=== PATIENT | female | born 1995 | race Caucasian/White ===

== ENCOUNTER 2019-05-22 11:44 | Observation (INO) | payer MEDICAID ==
[~2019-05-22] VITALS: Ht 165.1 cm; Wt 60.5 kg
[~2019-05-22 11:44] MED LIST: ALBU8.5H8 INH; BIRTH CONTROL; CLON1TAB PO; ESCI10TA10 PO
--- NOTE | 2019-05-22 12:11 | NUR ---
PT EHRE WITH C/O COUGH AND "THICK MUCUS." PT STATES HX ASTHMA. PT SEEN HERE 4 DAYS AGO FOR SAME THING. PT ARRIVED TODAY ON AMBULANCE. PT AAO X 4, RECENT HEROIN USE, NAD, ROOM AIR, SITTING ON GURNEY AND WATCHING TV, CALL LIGHT WITHIN REACH. PT DEMANDING "SOMETHING NEEDS TO BE DONE, I WAS HERE 4 DAYS AGO AND ALL YOU DID WAS PUT ME ON STEROIDS AND IT WASN'T DOING ANYTHING. I NEED SOMETHING NOW TO GET THIS JUNK OUT OF MY THROAT." PA AT BEDSIDE FOR EXAM.
[2019-05-22] MEDS ORDERED: CLONIDINE (12:14)
--- NOTE | 2019-05-22 12:21 | NUR ---
PT TAKEN TO XRAY.
--- NOTE | 2019-05-22 12:27 | NUR ---
PT NOTIFIED THIS RN THAT SHE TOOK HER HOME DOSE OF [place], PA NOTIFIED AND THIS RN NOT TO ADMINISTER PO ATIVAN. PT BACK FROM XRAY.
[2019-05-22] MEDS ORDERED: ALBUTEROL/IPRATROPIUM 2.5MG/0.5MG, 3 ML NPPB SCH ×2 (12:30→14:00)
[2019-05-22] MEDS ORDERED: LORazepam 1MG TABLET PO ONE (12:30)
[2019-05-22] MEDS ORDERED: ALBUTEROL/IPRATROPIUM 2.5MG/0.5MG, 3 ML ONE (12:54)
--- NOTE | 2019-05-22 12:58 | NUR ---
THIS RN CALLED TO ROOM, PT STATES "THIS IS BULLSHIT, I NEED ANTIBIOTICS AND I NEED YOU TO GIVE THEM TO ME HERE AND NOW BECAUSE I CAN BARELY WALK. YOU GUYS BETTER DO SOMETHING FOR ME OR YOU BETTER BELIEVE I AM GOING TO REPORT THIS." PA UPDATED ON PT'S REQUEST FOR ABX AND AN "IMMEDIATE" CURE.
--- NOTE | 2019-05-22 13:08 | NUR ---
MD AT BEDSIDE FOR EXAM, RT AT BEDSIDE.
--- NOTE | 2019-05-22 13:09 | NUR ---
PT MEDICATED PER PA ORDER.
--- NOTE | 2019-05-22 13:28 | NUR ---
ALL RESULTS BACK AT THIS TIME, CHART UP FOR RECHECK.
--- NOTE | 2019-05-22 13:35 | NUR ---
AT BEDSIDE FOR REASSESSMENT.
--- NOTE | 2019-05-22 13:58 | NUR ---
PIV ESTABLISHED BY THIS RN AND LABS DRAWN. PT PLACED ON 2L NC. WALKING O2 SAT 85% WITH SIGNIFICANT SOB PER PT. PLAN FOR ADMISSION.
[2019-05-22] MEDS ORDERED: SODIUM CHLORIDE FLUSH 10ML SYR IVF ONE (14:00)
[2019-05-22] MEDS ORDERED: AZITHROMYCIN 500 MG in SODIUM CHLORIDE 0.9% 250 ML IV ONE (14:00)
[2019-05-22 14:03] LABS: BASOPHILS # (AUTO) 0.01 x10^3/uL (0-0.1); BASOPHILS % (AUTO) 0 % (0-1); EOSINOPHILS % (AUTO) 0 % (1-7); LYMPHOCYTES # (AUTO) 1.01 x10^3/uL (1-3.4); LYMPHOCYTES % (AUTO) 10 % (22-44); MD NO; MEAN CORPUSCULAR HEMOGLOBIN 29.9 pg (27.0-34.8); MEAN CORPUSCULAR HGB CONC 33.2 g/dL (32.4-35.8); MEAN PLATELET VOLUME 7.6 fL (7.4-10.4); MONOCYTES # (AUTO) 0.18 x10^3/uL (0.2-0.8); MONOCYTES % (AUTO) 2 % (2-9); NEUTROPHILS # (AUTO) 9.38 x10^3/uL (1.8-6.8); NEUTROPHILS % (AUTO) 89 % (42-75); PLATELET COUNT 278 x10^3/uL (130-400); RED BLOOD COUNT 4.98 x10^6/uL (3.82-5.3); RED CELL DISTRIBUTION WIDTH 12.4 % (9.6-15.2)
[2019-05-22 14:15] LABS: ALBUMIN 3.7 g/dL (3.4-5.0); ANION GAP 8 mmol/L (5-15); CALCIUM 9.6 mg/dL (8.5-10.1); CHLORIDE 108 mmol/L (98-107); CREATININE 1.03 mg/dL (0.55-1.02)
[2019-05-22 14:32] LABS: RAPID INFLUENZA A Negative (Negative); RAPID INFLUENZA B Negative (Negative)
--- NOTE | 2019-05-22 14:38 | NUR ---
TASK RN: FIRST CONTACT WITH PT. Provided medication per EMAR. Pt stated pain at PIV site. Stopped PIV medication and d/c PIV with tip intact. New PIV being established at this time.
[2019-05-22] MEDS ORDERED: ACETAMINOPHEN 325 MG TABLET PO PRN (15:00)
[2019-05-22] MEDS ORDERED: ONDANSETRON 2MG/ML, 2ML IVPush PRN (15:00)
[2019-05-22] MEDS ORDERED: TRAZODONE 50MG TABLET PO PRN (15:00)
[2019-05-22] MEDS ORDERED: PROMETHAZINE 25 MG/ML, 1ML IM PRN (15:00)
--- NOTE | 2019-05-22 15:04 | NUR ---
TECH AT BEDSIDE, PIV ESTABLISHED UNDER US.
[2019-05-22] MEDS: SODIUM CHLORIDE 0.9% 1,000 ML IV SCH (16:09)
[2019-05-22] MEDS: LORazepam 1MG TABLET PO PRN ×2 (16:09→20:01)
[2019-05-22] MEDS: TIZANIDINE 4MG TABLET PO SCH (16:09)
[2019-05-22] MEDS: GUAIFENESIN ER 600 MG TABLET PO SCH ×2 (16:09→20:01)
[2019-05-22] MEDS ORDERED: ALBUTEROL/IPRATROPIUM 2.5MG/0.5MG, 3 ML NPPB PRN (17:00)
[2019-05-22] MEDS: ALBUTEROL SULFATE 2.5 MG/3 ML NPPB SCH ×2 (18:45→23:00)
[2019-05-22 18:57] VITALS: BP 93/53
[2019-05-22] MEDS: HEPARIN 5,000 UNITS/ML, 1ML SQ SCH (19:00)
[2019-05-22] MEDS: methylPREDNISolone SOD SUCC 40 MG/ML IV SCH (19:44)
[2019-05-23] MEDS: TIZANIDINE 4MG TABLET PO SCH ×2 (00:54→09:20)
[2019-05-23 00:55] VITALS: BP 105/62
[2019-05-23] MEDS: SODIUM CHLORIDE 0.9% 1,000 ML IV SCH ×2 (00:56→09:24)
[2019-05-23] MEDS: ALBUTEROL SULFATE 2.5 MG/3 ML NPPB SCH ×3 (01:47→10:43)
[2019-05-23] MEDS: HEPARIN 5,000 UNITS/ML, 1ML SQ SCH ×2 (03:00→11:00)
[2019-05-23] MEDS: methylPREDNISolone SOD SUCC 40 MG/ML IV SCH (04:04)
[2019-05-23] MEDS: LORazepam 1MG TABLET PO PRN ×3 (04:18→13:37)
[2019-05-23] MEDS ORDERED: ESCITALOPRAM 10MG TABLET PO SCH (09:00)
[2019-05-23 09:17] VITALS: BP 108/63
[2019-05-23] MEDS: GUAIFENESIN ER 600 MG TABLET PO SCH (09:20)
[2019-05-23 09:27] LABS: MEAN CORPUSCULAR HEMOGLOBIN 29.5 pg (27.0-34.8); MEAN CORPUSCULAR VOLUME 89.3 fL (80-100); MEAN PLATELET VOLUME 7.5 fL (7.4-10.4); PLATELET COUNT 298 x10^3/uL (130-400); RED BLOOD COUNT 4.26 x10^6/uL (3.82-5.3); RED CELL DISTRIBUTION WIDTH 12.5 % (9.6-15.2)
[2019-05-23 09:30] LABS: ANION GAP 9 mmol/L (5-15); CALCIUM 8.4 mg/dL (8.5-10.1); CHLORIDE 109 mmol/L (98-107); CREATININE 0.86 mg/dL (0.55-1.02)
[2019-05-23 09:42] LABS: BASOPHILS # (AUTO) 0.01 x10^3/uL (0-0.1); BASOPHILS % (AUTO) 0 % (0-1); EOSINOPHILS % (AUTO) 0 % (1-7); LYMPHOCYTES # (AUTO) 0.86 x10^3/uL (1-3.4); LYMPHOCYTES % (AUTO) 8 % (22-44); MD SCAN; MONOCYTES % (AUTO) 2 % (2-9); NEUTROPHILS # (AUTO) 9.62 x10^3/uL (1.8-6.8); NEUTROPHILS % (AUTO) 90 % (42-75)
[2019-05-23] MEDS ORDERED: ALBUTEROL SULFATE 2.5 MG/3 ML NPPB PRN (11:30)
[2019-05-23] MEDS ORDERED: methylPREDNISolone SOD SUCC 40 MG/ML IV SCH (15:00)
[2019-05-23] MEDS ORDERED: DOXYCYCLINE 100MG TABLET PO SCH (15:00)
[2019-05-23] MEDS ORDERED: ALBUTEROL SULFATE 2.5 MG/3 ML NPPB SCH (20:00)
== END 2019-05-23 16:25 | disposition left against medical advice (07) ==
LOC: ED 13:49 → EDIP 13:50 → INTOOBSV 13:50 → ED 14:24 → 3N 15:20
PROVIDERS: ADMIT Internal Medicine; ATTEND Internal Medicine
DX: J96.01 Acute respiratory failure with hypoxia (principal); J45.901 Unspecified asthma with (acute) exacerbation; N17.0 Acute kidney failure with tubular necrosis; E87.2 Acidosis; F13.20 Sedative, hypnotic or anxiolytic dependence, uncomplicated; D72.829 Elevated white blood cell count, unspecified; F11.10 Opioid abuse, uncomplicated; F90.9 Attention-deficit hyperactivity disorder, unspecified type; F41.9 Anxiety disorder, unspecified; F32.9 Major depressive disorder, single episode, unspecified; Z88.1 Allergy status to other antibiotic agents
CPT/HCPCS: 36415; 71046; 80048; 82040; 83605; 85025; 87400; 94640; 96365; 96372; 96375; 99291; G0378; J0456; J2920; J7030; J7050; J7512; J7613; J7620

== ENCOUNTER 2019-08-19 10:48 | Inpatient (IN) | payer MEDICAID ==
[~2019-08-19] VITALS: Ht 165.1 cm; Wt 60.1 kg
[~2019-08-19 10:48] MED LIST changes: +CLONIDINE
[2019-08-19] MEDS ORDERED: methylPREDNISolone SOD SUCC 125 MG/2 ML ONE (11:18)
[2019-08-19] MEDS ORDERED: ALBUTEROL 0.5%, 20ML ONE (11:20)
--- NOTE | 2019-08-19 11:28 | NUR ---
pt to ed from home. c/o asthma exacerbation xdays. exp/insp wheezes exp>insp on auscultation, audible exp wheezing. 84% RA. nebs at home w/ no relief. sts uses IV heroin, took heroin prior to coming to ED. pt anxious, speaking quickly. bp stable, SR 90-100s. dr. george in room. piv est, labs drawn. meds per sep. cont neb in prog. cxr pending. call toro in reach. as
[2019-08-19] MEDS ORDERED: SODIUM CHLORIDE FLUSH 10ML SYR IVF ONE (11:30)
[2019-08-19] MEDS ORDERED: methylPREDNISolone SOD SUCC 125 MG/2 ML IVPush ONE (11:30)
[2019-08-19] MEDS ORDERED: SODIUM CHLORIDE 0.9% 1,000ML IVBOLUS ONE (11:30)
[2019-08-19 11:37] LABS: BASOPHILS # (AUTO) 0.04 x10^3/uL (0-0.1); BASOPHILS % (AUTO) 0 % (0-1); EOSINOPHILS # (AUTO) 1.71 x10^3/uL (0-0.4); EOSINOPHILS % (AUTO) 14 % (1-7); LYMPHOCYTES # (AUTO) 1.05 x10^3/uL (1-3.4); LYMPHOCYTES % (AUTO) 9 % (22-44); MD NO; MEAN CORPUSCULAR HEMOGLOBIN 27.8 pg (27.0-34.8); MEAN CORPUSCULAR HGB CONC 32.1 g/dL (32.4-35.8); MEAN CORPUSCULAR VOLUME 86.4 fL (80-100); MONOCYTES # (AUTO) 0.45 x10^3/uL (0.2-0.8); MONOCYTES % (AUTO) 4 % (2-9); NEUTROPHILS # (AUTO) 8.98 x10^3/uL (1.8-6.8); NEUTROPHILS % (AUTO) 74 % (42-75); PLATELET COUNT 454 x10^3/uL (130-400); RED BLOOD COUNT 4.55 x10^6/uL (3.82-5.3)
[2019-08-19 11:47] LABS: ALBUMIN 2.8 g/dL (3.4-5.0); ANION GAP 8 mmol/L (5-15); CALCIUM 8.5 mg/dL (8.5-10.1); CHLORIDE 102 mmol/L (98-107); CREATININE 0.92 mg/dL (0.55-1.02)
[2019-08-19] MEDS ORDERED: VANCOMYCIN PMX 1GM/200ML 200 ML IVPB ONE (12:00)
[2019-08-19] MEDS ORDERED: ALBUTEROL SULFATE 2.5 MG/3 ML NPPB PRN ×2 (12:00→15:30)
[2019-08-19] MEDS ORDERED: CEFTRIAXONE PMX 1GM/50ML 50 ML IVPB ONE (12:00)
[2019-08-19] MEDS ORDERED: VANCOMYCIN PER PHARMACY MC ONE (12:00)
[2019-08-19] MEDS ORDERED: CEFTRIAXONE PMX 1GM/50ML 50 ML ONE (12:06)
[2019-08-19] MEDS ORDERED: SODIUM CHLORIDE 0.9%, 500ML IVBOLUS ONE (12:30)
[2019-08-19] MEDS ORDERED: CLON-275 PO (12:35)
--- NOTE | 2019-08-19 12:35 | NUR ---
to bathroom. gait steady. tachypneic after. plan for admit. ua sent. abx infusing. as
[2019-08-19] MEDS ORDERED: MAGNESIUM SULFATE PMX 2GM/50ML 50 ML ONE (12:47)
[2019-08-19] MEDS ORDERED: MAGNESIUM SULFATE PMX 2GM/50ML 50 ML IV ONE ×2 (13:00→14:30)
[2019-08-19 13:09] LABS: AMPHETAMINE SCREEN, URINE Negative (Negative); BARBITURATE SCREEN, URINE Negative (Negative); BENZODIAZEPINE SCREEN, URINE Negative (Negative); CANNABINOID SCREEN, URINE Negative (Negative); COCAINE SCREEN, URINE Negative (Negative); METHADONE SCREEN, URINE Negative (Negative); OPIATE SCREEN, URINE Positive (Negative)
--- NOTE | 2019-08-19 13:17 | NUR ---
pt to ct. rt turned off nebulizer and pt went to ct w/o O2. call placed to ct, told ct to place pt on [address] pt satting 85% per director service. told director service to place pt on nrb at 15 lpm and then titrate down to keep pt 95%. as
[2019-08-19] MEDS ORDERED: OMNIPAQUE 350 MG/ML, 75ML BOTTLE ONE (13:29)
--- NOTE | 2019-08-19 13:40 | NUR ---
pt back from ct. unable to hang vanco/mag d/t shortage of iv pumps. sterile processing called mult times. pt taking off bp cuff/o2 mult times after being reminded to keep it on. asking for food. ordered lunch. vss. as
--- NOTE | 2019-08-19 13:52 | NUR ---
report to stefania estrada. as
--- NOTE | 2019-08-19 13:54 | NUR ---
stefania estrada notified that pt needs mag/vanco. meds on bed w/ pt. as
[2019-08-19] MEDS ORDERED: DOCUSATE 100 MG CAPSULE PO PRN (14:30)
[2019-08-19] MEDS ORDERED: POLYETHYLENE GLYCOL 17 GM PACKET PO PRN (14:30)
[2019-08-19] MEDS ORDERED: BISACODYL 10 MG SUPP PR PRN (14:30)
[2019-08-19] MEDS ORDERED: ONDANSETRON 2MG/ML, 2ML IVPush PRN (14:30)
[2019-08-19] MEDS ORDERED: ACETAMINOPHEN 325 MG TABLET PO PRN (14:30)
[2019-08-19] MEDS ORDERED: VANCOMYCIN PER PHARMACY MC PRN (14:30)
[2019-08-19 15:06] VITALS: BP 122/64
[2019-08-19] MEDS ORDERED: PHARMACOKINETIC MONITORING MC PRN (15:30)
[2019-08-19] MEDS ORDERED: PHARMACOKINETIC CONSULTATION MC ONE (15:30)
[2019-08-19 15:42] LABS: RAPID INFLUENZA A Negative (Negative); RAPID INFLUENZA B Negative (Negative)
[2019-08-19] MEDS: SODIUM CHLORIDE 0.9% 1,000 ML IV SCH (16:05)
[2019-08-19] MEDS: VANCOMYCIN 1,200 MG in SODIUM CHLORIDE 0.9% 250 ML IV SCH (16:05)
[2019-08-19] MEDS: LORazepam 2 MG/ML, 1ML IVPush PRN ×2 (16:20→19:47)
[2019-08-19] MEDS: ENOXAPARIN 40 MG/0.4 ML SQ SCH (17:49)
[2019-08-19] MEDS: LEVONORGESTREL PO SCH (17:51)
[2019-08-19] MEDS: ETHINYL ESTRADIOL PO SCH (17:51)
[2019-08-19] MEDS ORDERED: ETHINYL ESTRADIOL PO SCH (18:00)
[2019-08-19] MEDS ORDERED: LEVONORGESTREL PO SCH (18:00)
[2019-08-19] MEDS: methylPREDNISolone SOD SUCC 40 MG/ML IV SCH (19:47)
[2019-08-19 20:23] VITALS: BP 119/74
[2019-08-20 01:14] VITALS: BP 121/68
[2019-08-20] MEDS: LORazepam 2 MG/ML, 1ML IVPush PRN ×4 (01:16→13:10)
[2019-08-20] MEDS: SODIUM CHLORIDE 0.9% 1,000 ML IV SCH ×2 (01:18→10:31)
[2019-08-20] MEDS: VANCOMYCIN 1,200 MG in SODIUM CHLORIDE 0.9% 250 ML IV SCH ×2 (04:25→15:43)
[2019-08-20 06:45] LABS: BASOPHILS # (AUTO) 0.04 x10^3/uL (0-0.1); BASOPHILS % (AUTO) 0 % (0-1); EOSINOPHILS % (AUTO) 0 % (1-7); LYMPHOCYTES # (AUTO) 0.94 x10^3/uL (1-3.4); LYMPHOCYTES % (AUTO) 7 % (22-44); MD NO; MEAN CORPUSCULAR HEMOGLOBIN 28.1 pg (27.0-34.8); MEAN CORPUSCULAR HGB CONC 32.5 g/dL (32.4-35.8); MEAN CORPUSCULAR VOLUME 86.4 fL (80-100); MEAN PLATELET VOLUME 7.4 fL (7.4-10.4); MONOCYTES # (AUTO) 0.36 x10^3/uL (0.2-0.8); MONOCYTES % (AUTO) 3 % (2-9); NEUTROPHILS # (AUTO) 12.52 x10^3/uL (1.8-6.8); NEUTROPHILS % (AUTO) 90 % (42-75); PLATELET COUNT 418 x10^3/uL (130-400); RED BLOOD COUNT 4.26 x10^6/uL (3.82-5.3); RED CELL DISTRIBUTION WIDTH 14.2 % (9.6-15.2)
[2019-08-20 06:59] LABS: ALBUMIN 2.6 g/dL (3.4-5.0); ANION GAP 6 mmol/L (5-15); CALCIUM 8.4 mg/dL (8.5-10.1); CHLORIDE 109 mmol/L (98-107)
[2019-08-20 07:12] LABS: ALANINE AMINOTRANSFERASE 21 U/L (12-78); ALKALINE PHOSPHATASE 71 U/L (45-117); BILIRUBIN,TOTAL 0.4 mg/dL (0.2-1.0); CREATININE 0.76 mg/dL (0.55-1.02); TOTAL PROTEIN 7.4 g/dL (6.4-8.2)
[2019-08-20 07:54] VITALS: BP 106/58
[2019-08-20] MEDS: CETIRIZINE 10 MG TABLET PO SCH (10:30)
[2019-08-20] MEDS: methylPREDNISolone SOD SUCC 40 MG/ML IV SCH ×2 (10:30→21:02)
[2019-08-20] MEDS: ESCITALOPRAM 10MG TABLET PO SCH (10:30)
[2019-08-20] MEDS: CEFTRIAXONE PMX 1GM/50ML 50 ML IV SCH (13:11)
[2019-08-20 13:27] LABS: MICROSCOPIC NOT IND
[2019-08-20 13:34] LABS: CULTURE INDICATED? NO
[2019-08-20 14:24] VITALS: BP 115/70
[2019-08-20] MEDS ORDERED: GUAIFENESIN ER 600 MG TABLET ONE (15:38)
[2019-08-20] MEDS: LORazepam 1MG TABLET PO PRN ×3 (15:42→21:03)
[2019-08-20] MEDS ORDERED: LORazepam 2 MG/ML, 1ML IVPush PRN (16:30)
[2019-08-20] MEDS: ETHINYL ESTRADIOL PO SCH (18:00)
[2019-08-20] MEDS: LEVONORGESTREL PO SCH (18:00)
[2019-08-20] MEDS: ENOXAPARIN 40 MG/0.4 ML SQ SCH (18:44)
[2019-08-20 20:53] VITALS: BP 137/81
[2019-08-20] MEDS: GUAIFENESIN ER 600 MG TABLET PO SCH (21:03)
[2019-08-21 01:48] VITALS: BP 118/68
[2019-08-21] MEDS: LORazepam 1MG TABLET PO PRN ×4 (01:56→10:48)
[2019-08-21] MEDS: VANCOMYCIN 1,200 MG in SODIUM CHLORIDE 0.9% 250 ML IV SCH (03:44)
[2019-08-21 04:21] LABS: BASOPHILS # (AUTO) 0.02 x10^3/uL (0-0.1); BASOPHILS % (AUTO) 0 % (0-1); EOSINOPHILS % (AUTO) 0 % (1-7); LYMPHOCYTES # (AUTO) 1.15 x10^3/uL (1-3.4); LYMPHOCYTES % (AUTO) 8 % (22-44); MD NO; MEAN CORPUSCULAR HEMOGLOBIN 28.2 pg (27.0-34.8); MEAN CORPUSCULAR HGB CONC 32.6 g/dL (32.4-35.8); MEAN CORPUSCULAR VOLUME 86.3 fL (80-100); MEAN PLATELET VOLUME 7.6 fL (7.4-10.4); MONOCYTES # (AUTO) 0.26 x10^3/uL (0.2-0.8); MONOCYTES % (AUTO) 2 % (2-9); NEUTROPHILS # (AUTO) 13.24 x10^3/uL (1.8-6.8); NEUTROPHILS % (AUTO) 90 % (42-75); PLATELET COUNT 406 x10^3/uL (130-400); RED BLOOD COUNT 4.01 x10^6/uL (3.82-5.3); RED CELL DISTRIBUTION WIDTH 14.5 % (9.6-15.2)
[2019-08-21 04:30] LABS: ANION GAP 6 mmol/L (5-15); CALCIUM 8.6 mg/dL (8.5-10.1); CHLORIDE 109 mmol/L (98-107); CREATININE 0.77 mg/dL (0.55-1.02)
[2019-08-21 04:32] LABS: VANCOMYCIN,TROUGH 7.1 mcg/mL (5.0-10.0)
[2019-08-21] MEDS: CETIRIZINE 10 MG TABLET PO SCH (08:14)
[2019-08-21] MEDS: GUAIFENESIN ER 600 MG TABLET PO SCH (08:14)
[2019-08-21] MEDS: ESCITALOPRAM 10MG TABLET PO SCH (08:15)
[2019-08-21] MEDS: methylPREDNISolone SOD SUCC 40 MG/ML IV SCH ×2 (08:15→10:42)
[2019-08-21] MEDS ORDERED: DOXYCYCLINE 100 MG in DEXTROSE 5% 250 ML IV SCH (10:00)
[2019-08-21] MEDS ORDERED: CITA10TA8 PO (10:13)
[2019-08-21] MEDS ORDERED: VANCOMYCIN 1,200 MG in SODIUM CHLORIDE 0.9% 250 ML IV SCH (12:00)
[2019-08-21 12:30] VITALS: BP 130/86
[2019-08-21] MEDS ORDERED: METHADONE 10 MG TABLET PO SCH (13:30)
[2019-08-21] MEDS: CEFTRIAXONE PMX 1GM/50ML 50 ML IV SCH (13:47)
[2019-08-21] MEDS ORDERED: PRED20TA PO (15:47)
[2019-08-21] MEDS ORDERED: ESCI10TA10 PO (15:47)
[2019-08-21] MEDS ORDERED: ALBU8.5H8 INH (15:47)
[2019-08-21] MEDS ORDERED: DOXY100T23 PO (15:47)
== END 2019-08-21 16:38 | disposition left against medical advice (07) | DRG 196 ==
LOC: ED 12:11 → EDIP 12:12 → ED 12:31 → 4EST 14:25
PROVIDERS: ADMIT Hospitalist; ATTEND Hospitalist
DX: J67.9 Hypersensitivity pneumonitis due to unspecified organic dust (principal); J96.01 Acute respiratory failure with hypoxia; E87.2 Acidosis; R65.10 Systemic inflammatory response syndrome (SIRS) of non-infectious origin without acute organ dysfunction; J82 Pulmonary eosinophilia, not elsewhere classified; E83.42 Hypomagnesemia; F11.90 Opioid use, unspecified, uncomplicated; F32.9 Major depressive disorder, single episode, unspecified; F43.10 Post-traumatic stress disorder, unspecified; F90.9 Attention-deficit hyperactivity disorder, unspecified type; F95.2 Tourette's disorder; T38.0X5A Adverse effect of glucocorticoids and synthetic analogues, initial encounter; Y92.89 Other specified places as the place of occurrence of the external cause
CPT/HCPCS: 36415; 84145; 87400; 96361; 96365; 96375; 99291; J7611; 71045; 71260; 80048; 80053; 80202; 80307; 81003; 82040; 83036; 83605; 83735; 84100; 84439; 84443; 84703; 85025; 87040; 87205; 87491; 87591; 93005; 94644; G0378; J0696; J1650; J3370; J7060; Q9967; J2060; J2920; J2930; J3475; J7030; J7040; J7050

== ENCOUNTER 2019-09-12 21:26 | Emergency (ER) | payer MEDICAID ==
[~2019-09-12] VITALS: Ht 165.1 cm; Wt 57.2 kg
[~2019-09-12 21:26] MED LIST changes: +CITA10TA8 PO; +CLON-275 PO; +DOXY100T23 PO; +PRED20TA PO
[2019-09-12 21:37] VITALS: BP 144/114
--- NOTE | 2019-09-12 21:50 | NUR ---
TRAINING AND DEVELOPMENT SPECIALIST: FROM LOBBY TO ROOM AT THIS TIME
[2019-09-12] MEDS ORDERED: ALBUTEROL/IPRATROPIUM 2.5MG/0.5MG, 3 ML NPPB SCH (22:00)
[2019-09-12] MEDS ORDERED: SODIUM CHLORIDE FLUSH 10ML SYR IVF ONE (22:30)
[2019-09-12] MEDS ORDERED: CEFTRIAXONE PMX 1GM/50ML 50 ML IVPB ONE (22:30)
[2019-09-12] MEDS ORDERED: AZITHROMYCIN 500 MG in SODIUM CHLORIDE 0.9% 250 ML IVPB ONE (22:30)
[2019-09-12 22:38] LABS: MEAN CORPUSCULAR HEMOGLOBIN 27.7 pg (27.0-34.8); MEAN CORPUSCULAR HGB CONC 32.6 g/dL (32.4-35.8); MEAN PLATELET VOLUME 6.9 fL (7.4-10.4); PLATELET COUNT 397 x10^3/uL (130-400); RED BLOOD COUNT 4.34 x10^6/uL (3.82-5.3); RED CELL DISTRIBUTION WIDTH 14.4 % (9.6-15.2)
[2019-09-12 22:49] LABS: ALANINE AMINOTRANSFERASE 13 U/L (12-78); ALBUMIN 2.7 g/dL (3.4-5.0); ANION GAP 8 mmol/L (5-15); CALCIUM 8.5 mg/dL (8.5-10.1); CHLORIDE 106 mmol/L (98-107); CREATININE 0.85 mg/dL (0.55-1.02)
[2019-09-12 22:54] LABS: ALKALINE PHOSPHATASE 77 U/L (45-117); BILIRUBIN,TOTAL 0.3 mg/dL (0.2-1.0); TOTAL PROTEIN 7.7 g/dL (6.4-8.2)
--- NOTE | 2019-09-12 22:54 | NUR ---
per provided pt to not have iv she does not want one and will follow up with pcp for abx.
--- NOTE | 2019-09-12 22:55 | NUR ---
late entry. Pt is here for mulit focal pneumonia that is not resolving due to poor compliance and iv drug use. pt reports she has relapsed and cannot stay in the hospital due to anxiety. Pt reports increase in sob.
[2019-09-12 23:02] LABS: MD YES
[2019-09-12 23:13] LABS: EOS#(MANUAL) 2.04 x10^3/uL (0.0-0.4); EOS% (MANUAL) 21 % (1-7); LYMPH#(MANUAL) 2.33 x10^3/uL (1-3.4); LYMPHS% (MANUAL) 24 % (22-44); MONOS#(MANUAL) 0.29 x10^3/uL (0.3-2.7); MONOS% (MANUAL) 3 % (2-9); SEG#(MANUAL) 5.04 x10^3/uL (1.8-6.8); SEGS% (MANUAL) 52 % (42-75)
[2019-09-12 23:14] LABS: <PLATELET ESTIMATE> ADEQUATE; <PLT MORPHOLOGY> NORMAL PLT MORPH; <RBC MORPHOLOGY> NORMAL
--- NOTE | 2019-09-12 23:41 | NUR ---
Patient/Caregiver given discharge instructions and they have confirmed that they understand the instructions. Patient ambulatory with steady gait.
== END 2019-09-12 23:47 | disposition home or self-care (01) ==
LOC: ED 23:30
DX: J45.41 Moderate persistent asthma with (acute) exacerbation (principal); J18.9 Pneumonia, unspecified organism; F11.10 Opioid abuse, uncomplicated; F17.210 Nicotine dependence, cigarettes, uncomplicated
CPT/HCPCS: 36415; 71046; 80053; 84703; 85025; 87040; 94640; 99284; 99406; J7512; J7620

== ENCOUNTER 2020-01-22 17:27 | Emergency (ER) | payer MEDICAID ==
[~2020-01-22] VITALS: Ht 165.1 cm; Wt 52.9 kg
--- NOTE | 2020-01-22 17:35 | NUR ---
CALLED FOR PT. PT NOT IN LOBBY.
--- NOTE | 2020-01-22 18:00 | NUR ---
TASK RN: PT TO ROOM VIA WC FROM TRIAGE. PT SABLE TO SPEAK W/O DIFFICULTY AND DOES NOT APPEAR SOB, HOWEVER RA SAT 72%. 02 4L NC PLACED WITH EFFECT, SP02 = 92%. ALL MONITORS PLACED. CALL LIGHT W/I REACH
[2020-01-22] MEDS ORDERED: ALBUTEROL/IPRATROPIUM 2.5MG/0.5MG, 3 ML NPPB ONE (18:30)
--- NOTE | 2020-01-22 19:00 | NUR ---
PT STATES SHE'S HAD RECURRENT BOUTS OF PNEUMONIA. STATES "IT SEEMS LIKE I GET SICK AFTER I RELAPSE AND I DO A BAD STICK OR SOMETHING". REPORTS SHE VAPES BUT DOESN'T SMOKE OR INHALE ANY DRUGS.
[2020-01-22] MEDS ORDERED: SODIUM CHLORIDE FLUSH 10ML SYR IVF ONE (19:30)
--- NOTE | 2020-01-22 19:30 | NUR ---
BREATHING TX DONE. LABS & BLOOD CX DRAWN AT BS. RV'WD POC WITH PT.
[2020-01-22 19:34] LABS: MEAN CORPUSCULAR HEMOGLOBIN 27.3 pg (27.0-34.8); MEAN CORPUSCULAR HGB CONC 32.6 g/dL (32.4-35.8); MEAN CORPUSCULAR VOLUME 83.9 fL (80-100); MEAN PLATELET VOLUME 6.5 fL (7.4-10.4); PLATELET COUNT 470 x10^3/uL (130-400); RED BLOOD COUNT 4.49 x10^6/uL (3.82-5.3); RED CELL DISTRIBUTION WIDTH 14.5 % (9.6-15.2)
[2020-01-22 19:46] LABS: ALBUMIN 2.7 g/dL (3.4-5.0); ANION GAP 7 mmol/L (5-15); CALCIUM 8.5 mg/dL (8.5-10.1); CHLORIDE 104 mmol/L (98-107); CREATININE 0.91 mg/dL (0.55-1.02)
[2020-01-22] MEDS ORDERED: CEFTRIAXONE PMX 1GM/50ML 50 ML ONE (19:46)
[2020-01-22] MEDS ORDERED: CEFTRIAXONE PMX 1GM/50ML 50 ML IVPB ONE (20:00)
--- NOTE | 2020-01-22 20:00 | NUR ---
IV ABX INFUSING. RV'WD POC WITH PT AGAIN.
[2020-01-22 20:03] LABS: BASOPHILS # (AUTO) 0.05 x10^3/uL (0-0.1); BASOPHILS % (AUTO) 0 % (0-1); EOSINOPHILS # (AUTO) 2.99 x10^3/uL (0-0.4); EOSINOPHILS % (AUTO) 22 % (1-7); LYMPHOCYTES # (AUTO) 2.14 x10^3/uL (1-3.4); LYMPHOCYTES % (AUTO) 16 % (22-44); MD SCAN; MONOCYTES # (AUTO) 0.72 x10^3/uL (0.2-0.8); MONOCYTES % (AUTO) 5 % (2-9); NEUTROPHILS # (AUTO) 7.84 x10^3/uL (1.8-6.8); NEUTROPHILS % (AUTO) 57 % (42-75)
[2020-01-22 20:15] VITALS: BP 90/44
--- NOTE | 2020-01-22 20:43 | NUR ---
RA SPO2 80%. PT AMBULATED TO BR WITHOUT DIFFICULTY.
--- NOTE | 2020-01-22 20:50 | NUR ---
PT HAD SKIN IRRITATION TO L EYE, STATED, "IT WAS AFTER I TOUCHED MY EYE WITH HAND HEALTHCARE APPLICATIONS ANALYST, THEN IT GOT ALL RED AND PUFFY." ERP WAS IN ROOM TO SPEAK WITH PT AND ASSESS HER. ERP ENCOURAGED PT TO STAY IN HOSPITAL D/T LOW O2 SAT BUT PT BECAME VERY ANXIOUS AND COMPLAINED, "YOU'RE NOT EVEN PAYING ATTENTION TO MY EYE! I HATE GERMS AND I DON'T EVEN WANT TO BE HERE! I'M HAVING A PANIC ATTACK!" PT THEN REFUSED TO BE ADMITTED AND STATED SHE WANTED TO LEAVE [place].
--- NOTE | 2020-01-22 21:30 | NUR ---
BILLY RN: PT DISCHARGED BY BILLY RN. PT VERBALIZED UNDERSTANDING OF DC INSTRUCTIONS AND RX AND NEED FOR F/U WITH PCP AND TO RETURN IMMEDIATELY TO ER FOR WORSENING SX. PT EDUCATED RISKS OF LEAVING AMA UP TO AND INCLUDING HYPOXIA AND . PT VERBALIZED UNDERSTANDING, STATING "I KNOW IT SOUNDS DUMB BUT I'M A HUGE GERMOPHOBE. I TOUCHED THE GURNEY THEN I TOUCHED MY EYE. AND IT BLEW UP. PLUS SHE JUST HAD SURGERY [POINTING TO DOG]". PT AO X 4. AMA PAPERWORK SIGNED AND PT WALKED TO DC DESK.
== END 2020-01-22 21:34 ==
LOC: ED 21:28
DX: J18.8 Other pneumonia, unspecified organism (principal); R09.02 Hypoxemia; J45.909 Unspecified asthma, uncomplicated; R94.31 Abnormal electrocardiogram [ECG] [EKG]; F17.200 Nicotine dependence, unspecified, uncomplicated; F90.9 Attention-deficit hyperactivity disorder, unspecified type
CPT/HCPCS: 36415; 71045; 80048; 82040; 83605; 84145; 85025; 87040; 93005; 94640; 96365; 99285; J0696; J7512

== ENCOUNTER 2020-02-16 22:15 | Inpatient (IN) | payer MEDICAID ==
[~2020-02-16] VITALS: Ht 165.1 cm; Wt 63.7 kg
--- NOTE | 2020-02-16 22:18 | NUR ---
THIS IS A 24Y F THAT WAS FOUND IN HER CAR OUT FRONT OF THE ER. PT STS SHE WAS TRYING TO COME IN TO GET TREATED FOR HER PNA AND ASTHMA. PT WAS SEEN IN DECEMBER AND DIAGNOSED BUT DUE TO PERSONAL CIRCUMSTANCES PT WAS UNABLE TO BE ADMITTED TO HOSPITAL AT THAT TIME. PT RA SAT 74% TACHYCARDIC, TACHYPENIC. PT CONNECTED TO ALL MONITORING, ERP AT BEDSIDE FOR ASSESSMENT.
[2020-02-16] MEDS ORDERED: SODIUM CHLORIDE 0.9% 1,000ML IVBOLUS ONE (22:30)
[2020-02-16] MEDS ORDERED: SODIUM CHLORIDE FLUSH 10ML SYR IVF ONE (22:30)
[2020-02-16] MEDS ORDERED: ALBUTEROL/IPRATROPIUM 2.5MG/0.5MG, 3 ML NPPB SCH (22:30)
[2020-02-16] MEDS ORDERED: methylPREDNISolone SOD SUCC 125 MG/2 ML IV ONE (22:30)
[2020-02-16] MEDS ORDERED: methylPREDNISolone SOD SUCC 125 MG/2 ML ONE (22:47)
[2020-02-16] MEDS ORDERED: ALBUTEROL/IPRATROPIUM 2.5MG/0.5MG, 3 ML ONE (22:48)
[2020-02-16] MEDS ORDERED: AZITHROMYCIN 500 MG in SODIUM CHLORIDE 0.9% 250 ML IVPB ONE (23:00)
[2020-02-16] MEDS ORDERED: CEFTRIAXONE PMX 1GM/50ML 50 ML IVPB ONE (23:00)
[2020-02-16] MEDS ORDERED: CEFTRIAXONE PMX 1GM/50ML 50 ML ONE (23:14)
--- NOTE | 2020-02-16 23:23 | NUR ---
BREATHING TX IN PROCESS PT TOLERATING WELL. IVF AND ABX INFUSING W/OUT DIFFICULTY.
[2020-02-16 23:30] LABS: MEAN CORPUSCULAR HEMOGLOBIN 27.1 pg (27.0-34.8); MEAN CORPUSCULAR HGB CONC 32.2 g/dL (32.4-35.8); MEAN PLATELET VOLUME 7.4 fL (7.4-10.4); PLATELET COUNT 375 x10^3/uL (130-400); RED BLOOD COUNT 4.26 x10^6/uL (3.82-5.3)
[2020-02-16] MEDS ORDERED: VANCOMYCIN PER PHARMACY MC PRN (23:30)
[2020-02-16] MEDS ORDERED: VANCOMYCIN PMX 1GM/200ML 200 ML IV ONE (23:30)
[2020-02-16 23:33] LABS: ALANINE AMINOTRANSFERASE 18 U/L (12-78); ALBUMIN 2.9 g/dL (3.4-5.0); ANION GAP 8 mmol/L (5-15); CALCIUM 8.9 mg/dL (8.5-10.1); CHLORIDE 103 mmol/L (98-107); CREATININE 0.93 mg/dL (0.55-1.02)
[2020-02-16 23:37] LABS: ALKALINE PHOSPHATASE 72 U/L (45-117); BILIRUBIN,TOTAL 0.2 mg/dL (0.2-1.0); TOTAL PROTEIN 7.5 g/dL (6.4-8.2)
[2020-02-16] MEDS ORDERED: LORazepam 2 MG/ML, 1ML ONE (23:42)
--- NOTE | 2020-02-16 23:44 | NUR ---
PER DR MEDINA PT TO HAVE 1MG ATIVAN IV, PT MEDICATED TOLERATED WELL
[2020-02-17] LABS: BASOPHILS # (AUTO) 0.01 x10^3/uL (0-0.1); BASOPHILS % (AUTO) 0 % (0-1); EOSINOPHILS # (AUTO) 3.39 x10^3/uL (0-0.4); EOSINOPHILS % (AUTO) 21 % (1-7); LYMPHOCYTES # (AUTO) 1.53 x10^3/uL (1-3.4); LYMPHOCYTES % (AUTO) 9 % (22-44); MD SCAN; MONOCYTES # (AUTO) 0.95 x10^3/uL (0.2-0.8); MONOCYTES % (AUTO) 6 % (2-9); NEUTROPHILS # (AUTO) 10.58 x10^3/uL (1.8-6.8); NEUTROPHILS % (AUTO) 64 % (42-75)
[2020-02-17] MEDS ORDERED: ACETAMINOPHEN 325 MG TABLET PO PRN
[2020-02-17] MEDS ORDERED: ONDANSETRON ODT 4 MG PO PRN
[2020-02-17] MEDS ORDERED: POLYETHYLENE GLYCOL 17 GM PACKET PO PRN
[2020-02-17] MEDS ORDERED: OXYcodone IR 5MG TABLET PO PRN
[2020-02-17] MEDS ORDERED: PROMETHAZINE 25 MG/ML, 1ML IM PRN
[2020-02-17] MEDS ORDERED: morphine SULFATE 10 MG/ML, 1ML IVPush PRN
[2020-02-17] MEDS ORDERED: BISACODYL 10 MG SUPP PR PRN
[2020-02-17] MEDS ORDERED: VANCOMYCIN PER PHARMACY MC PRN
[2020-02-17] MEDS ORDERED: DOCUSATE 100 MG CAPSULE PO PRN
--- NOTE | 2020-02-17 00:10 | NUR ---
REPORT TO SALVADOR BERNABE PT READY FOR TRANSPORT TO FLOOR
[2020-02-17] MEDS ORDERED: LORazepam 2 MG/ML, 1ML IVPush ONE (00:30)
--- NOTE | 2020-02-17 00:40 | NUR ---
URINE SENT TO LAB
[2020-02-17 00:51] LABS: MICROSCOPIC NOT IND
[2020-02-17] MEDS: SODIUM CHLORIDE 0.9% 1,000 ML IV SCH ×2 (01:18→09:33)
[2020-02-17 01:23] VITALS: BP 114/73
[2020-02-17] MEDS ORDERED: VANCOMYCIN 1,400 MG in SODIUM CHLORIDE 0.9% 250 ML IV ONE (01:30)
[2020-02-17] MEDS ORDERED: PHARMACOKINETIC CONSULTATION MC ONE (01:30)
[2020-02-17] MEDS ORDERED: PHARMACOKINETIC MONITORING MC PRN (01:30)
[2020-02-17] MEDS: methylPREDNISolone SOD SUCC 125 MG/2 ML IVPush SCH ×3 (05:26→17:46)
[2020-02-17 06:02] LABS: BASOPHILS # (AUTO) 0.01 x10^3/uL (0-0.1); BASOPHILS % (AUTO) 0 % (0-1); EOSINOPHILS # (AUTO) 0.05 x10^3/uL (0-0.4); EOSINOPHILS % (AUTO) 1 % (1-7); LYMPHOCYTES # (AUTO) 0.48 x10^3/uL (1-3.4); LYMPHOCYTES % (AUTO) 6 % (22-44); MD NO; MEAN CORPUSCULAR HGB CONC 32.1 g/dL (32.4-35.8); MEAN PLATELET VOLUME 7.6 fL (7.4-10.4); MONOCYTES # (AUTO) 0.05 x10^3/uL (0.2-0.8); MONOCYTES % (AUTO) 1 % (2-9); NEUTROPHILS # (AUTO) 7.75 x10^3/uL (1.8-6.8); NEUTROPHILS % (AUTO) 93 % (42-75); PLATELET COUNT 342 x10^3/uL (130-400); RED BLOOD COUNT 4.12 x10^6/uL (3.82-5.3); RED CELL DISTRIBUTION WIDTH 15.6 % (9.6-15.2)
[2020-02-17 06:13] LABS: ALBUMIN 2.7 g/dL (3.4-5.0); ANION GAP 5 mmol/L (5-15); CALCIUM 8.6 mg/dL (8.5-10.1); CHLORIDE 105 mmol/L (98-107)
[2020-02-17 06:22] LABS: ALANINE AMINOTRANSFERASE 18 U/L (12-78); ALKALINE PHOSPHATASE 75 U/L (45-117); BILIRUBIN,TOTAL 0.2 mg/dL (0.2-1.0); CHOL/HDL RATIO 2.8; CHOLESTEROL, TOTAL 113 mg/dL (140-239); CREATININE 0.91 mg/dL (0.55-1.02); HDL CHOL % 35 % (28-40); HDL CHOLESTEROL (DIRECT) 40 mg/dL (40-60); LDL CHOLESTEROL,CALCULATED 56 mg/dL (54-169); LDL/HDL RATIO 1.4 (0.5-3.0); TOTAL PROTEIN 7.3 g/dL (6.4-8.2); TRIGLYCERIDES 86 mg/dL (50-200); VLDL CHOLESTEROL 17 mg/dL (0-25)
[2020-02-17 07:55] VITALS: BP_SYST 124; BP_SYST 147; BP_DIAS 72; BP_DIAS 73
[2020-02-17] MEDS ORDERED: ZINC SULFATE 220 MG CAPSULE PO SCH ×2 (09:00→11:00)
[2020-02-17] MEDS ORDERED: ASCORBIC ACID 500 MG TABLET PO SCH (09:00)
[2020-02-17] MEDS ORDERED: ESCITALOPRAM 10MG TABLET PO SCH ×2 (09:00→11:00)
[2020-02-17] MEDS ORDERED: CHOLECALCIFEROL 5,000u TAB PO SCH ×2 (09:00→11:00)
[2020-02-17] MEDS: ASCORBIC ACID 500 MG TABLET PO SCH ×2 (11:00→19:36)
[2020-02-17] MEDS ORDERED: METHADONE 10 MG TABLET PO SCH (12:00)
[2020-02-17] MEDS ORDERED: ALBUTEROL-IPRATROPIUM MDI INH INH PRN (12:00)
[2020-02-17 12:14] VITALS: BP 129/73
[2020-02-17] MEDS: VANCOMYCIN PMX 1GM/200ML 200 ML IV SCH (13:55)
[2020-02-17] MEDS: ALBUTEROL HFA 90 MCG/SPRAY INH SCH ×2 (17:46→19:44)
[2020-02-17 18:39] VITALS: BP 121/74
[2020-02-17] MEDS ORDERED: AZITHROMYCIN 500 MG in SODIUM CHLORIDE 0.9% 250 ML IV SCH (19:00)
[2020-02-17] MEDS: ONDANSETRON 2MG/ML, 2ML IVPush PRN (20:59)
[2020-02-17] MEDS ORDERED: LORazepam 0.5MG TABLET PO ONE (21:00)
[2020-02-18 01:02] VITALS: BP 113/71
[2020-02-18] MEDS: VANCOMYCIN PMX 1GM/200ML 200 ML IV SCH (01:04)
[2020-02-18] MEDS: methylPREDNISolone SOD SUCC 125 MG/2 ML IVPush SCH ×2 (01:04→06:21)
[2020-02-18] MEDS: ONDANSETRON 2MG/ML, 2ML IVPush PRN (04:24)
[2020-02-18] MEDS: ALBUTEROL HFA 90 MCG/SPRAY INH SCH (06:00)
[2020-02-18 06:25] LABS: MEAN CORPUSCULAR HEMOGLOBIN 27.2 pg (27.0-34.8); MEAN CORPUSCULAR HGB CONC 31.9 g/dL (32.4-35.8); MEAN PLATELET VOLUME 7.7 fL (7.4-10.4); PLATELET COUNT 348 x10^3/uL (130-400); RED BLOOD COUNT 4.17 x10^6/uL (3.82-5.3); RED CELL DISTRIBUTION WIDTH 15.9 % (9.6-15.2)
[2020-02-18 06:31] LABS: ALBUMIN 2.8 g/dL (3.4-5.0); ANION GAP 7 mmol/L (5-15); CALCIUM 8.7 mg/dL (8.5-10.1); CHLORIDE 107 mmol/L (98-107); HCT (SEDRATE) 35.5 % (34.6-47.8)
[2020-02-18 06:39] LABS: ALANINE AMINOTRANSFERASE 19 U/L (12-78); ALKALINE PHOSPHATASE 70 U/L (45-117); BILIRUBIN,TOTAL 0.3 mg/dL (0.2-1.0); CREATININE 0.87 mg/dL (0.55-1.02); FREE T4 (FREE THYROXINE) 0.98 ng/dL (0.76-1.46); TOTAL PROTEIN 7.5 g/dL (6.4-8.2)
[2020-02-18 06:54] LABS: BASOPHILS # (AUTO) 0.05 x10^3/uL (0-0.1); BASOPHILS % (AUTO) 0 % (0-1); EOSINOPHILS % (AUTO) 0 % (1-7); LYMPHOCYTES # (AUTO) 0.78 x10^3/uL (1-3.4); LYMPHOCYTES % (AUTO) 5 % (22-44); MONOCYTES # (AUTO) 0.24 x10^3/uL (0.2-0.8); MONOCYTES % (AUTO) 2 % (2-9); NEUTROPHILS # (AUTO) 15.28 x10^3/uL (1.8-6.8); NEUTROPHILS % (AUTO) 94 % (42-75)
[2020-02-18 07:05] VITALS: BP 129/75
[2020-02-18 07:33] LABS: MD SCAN
[2020-02-18] MEDS ORDERED: PROPRANOLOL 10 MG TABLET PO PRN (08:30)
[2020-02-18] MEDS ORDERED: METHADONE 10 MG TABLET PO SCH (09:00)
[2020-02-18] MEDS ORDERED: CEFTRIAXONE PMX 2GM/50ML 50 ML IV SCH (19:00)
== END 2020-02-18 10:00 | disposition left against medical advice (07) | DRG 193 ==
LOC: ED 23:18 → EDIP 23:53 → 4NW 02-17 01:07
PROVIDERS: ADMIT Internal Medicine; ATTEND Family Medicine
DX: J18.9 Pneumonia, unspecified organism (principal); J96.01 Acute respiratory failure with hypoxia; J45.901 Unspecified asthma with (acute) exacerbation; F32.9 Major depressive disorder, single episode, unspecified; F41.9 Anxiety disorder, unspecified; F43.10 Post-traumatic stress disorder, unspecified; F90.9 Attention-deficit hyperactivity disorder, unspecified type; F14.10 Cocaine abuse, uncomplicated; Z53.29 Procedure and treatment not carried out because of patient's decision for other reasons; F17.200 Nicotine dependence, unspecified, uncomplicated; Z20.828 Contact with and (suspected) exposure to other viral communicable diseases; F95.2 Tourette's disorder; Z88.1 Allergy status to other antibiotic agents; Z88.0 Allergy status to penicillin
CPT/HCPCS: 36415; 71045; 80053; 80061; 81003; 82728; 83605; 83615; 83735; 84145; 84439; 84443; 84481; 84703; 85025; 85379; 85651; 86140; 86803; 87040; 87070; 87205; 87521; 87635; 87806; 93005; 99291; G0378; J0456; J0696; J2405; J3370; G0475; J2060; J2930; J7030; J7050; J7512; Q0177